=== PATIENT | female | born 1940 | race Caucasian/White ===

== ENCOUNTER 2017-08-31 17:40 | Inpatient (IN) | payer MEDICARE ==
[~2017-08-31] VITALS: Ht 162.6 cm; Wt 60.5 kg
[2017-09-03 15:43] VITALS: BP 153/74
[2017-09-03] MEDS ORDERED: AMBISOME50 MG IV (16:46)
[2017-09-03] MEDS ORDERED: METHYLPHENIDATE 10MG PO (16:47)
[2017-09-03] MEDS ORDERED: GOOD NEIGHBOR500 M2 PO (16:47)
[2017-09-03] MEDS ORDERED: ZOFRAN4 M2 PO (16:47)
[2017-09-03 16:48] LABS: ALBUMIN 2.7 g/dL (3.5-5.0); CALCIUM 8.6 mg/dL (8.4-10.2); TOTAL BILIRUBIN 0.7 mg/dL (0.2-1.3); TOTAL PROTEIN 5.1 g/dL (6.3-8.2)
[2017-09-03] MEDS ORDERED: CHILDREN'S ASPI81 M1 PO (16:48)
[2017-09-03] MEDS ORDERED: LAMICTAL 100MG100 MG PO (16:48)
[2017-09-03] MEDS ORDERED: WELLBUTRIN XL150 M2 PO (16:49)
[2017-09-03] MEDS ORDERED: AMITRIPTYLINE H25 M2 PO (16:49)
[2017-09-03] MEDS ORDERED: URE-NA15 GM PO (16:49)
[2017-09-03] MEDS ORDERED: MIRALAX17 GM PO (16:50)
[2017-09-03] MEDS ORDERED: NEXIUM 40MG40 MG PO (16:50)
[2017-09-03] MEDS ORDERED: MELATONIN1 MG PO (16:50)
[2017-09-03] MEDS ORDERED: PRAVASTATIN SOD40 MG PO (16:50)
[2017-09-03] MEDS ORDERED: TOLTERODINE TART4 MG PO (16:51)
[2017-09-03 18:36] VITALS: BP 141/63
[2017-09-03 19:40] LABS: HEMOGLOBIN 10.4 g/dL (12.5-16.0); MEAN CELL VOLUME 89 fl (78-100); MEAN CORPUSCULAR HEMOGLOBIN 30 pg (27-31); MEAN CORPUSCULAR HGB CONC 34 g/dL (33-37); RED BLOOD COUNT 3.49 M/mm3 (4.10-5.30); WHITE BLOOD COUNT 3.5 K/mm3 (4.8-10.8)
[2017-09-03 19:48] LABS: RED CELL DISTRIBUTION WIDTH 20.3 % (11.5-14.5)
[2017-09-03 19:49] LABS: LYMPHOCYTE 13 % (20-51); NEUTROPHILS 68 % (42-75); PLATELET COUNT 24 K/mm3 (130-400)
[2017-09-03 19:50] LABS: MONOCYTE 15 % (3-10)
[2017-09-04 06:27] VITALS: BP 148/73
[2017-09-04 07:53] LABS: URINE APPEARANCE HAZY; URINE BILIRUBIN NEGATIVE (NEGATIVE); URINE BLOOD TRACE (NEGATIVE); URINE COLOR YELLOW; URINE GLUCOSE NEGATIVE (NEGATIVE); URINE KETONE NEGATIVE (NEGATIVE); URINE LEUKOCYTE ESTERASE 1+ (NEGATIVE); URINE NITRATE NEGATIVE (NEGATIVE); URINE PROTEIN(semi-quant) TRACE mg/dL (NEGATIVE); URINE UROBILINOGEN NORMAL (NORMAL)
[2017-09-04 07:54] LABS: URINE WBC 16-30 /hpf (0-3)
[2017-09-04 12:01] LABS: PH-URINE 5.5 (5.0 - 8.0); URINE APPEARANCE CLOUDY; URINE BILIRUBIN NEGATIVE (NEGATIVE); URINE BLOOD 50 ery/uL (NEGATIVE); URINE COLOR YELLOW; URINE GLUCOSE NEGATIVE (NEGATIVE); URINE KETONE NEGATIVE (NEGATIVE); URINE LEUKOCYTE ESTERASE 2+ (NEGATIVE); URINE NITRATE NEGATIVE (NEGATIVE); URINE PROTEIN(semi-quant) 1+ mg/dL (NEGATIVE); URINE UROBILINOGEN NORMAL (NORMAL)
[2017-09-04 12:02] LABS: URINE WBC >50 /hpf (0-3)
[2017-09-04 18:43] VITALS: BP 149/67
[2017-09-05 06:29] VITALS: BP 154/73
[2017-09-05 18:27] VITALS: BP 157/77
[2017-09-06 06:35] VITALS: BP 144/68
[2017-09-06 06:51] LABS: HEMATOCRIT 34.2 % (37.0-47.0); HEMOGLOBIN 11.7 g/dL (12.5-16.0); MEAN CELL VOLUME 88 fl (78-100); MEAN CORPUSCULAR HEMOGLOBIN 30 pg (27-31); MEAN CORPUSCULAR HGB CONC 34 g/dL (33-37); MEAN PLATELET VOLUME 9.5 fl (7.4-10.4); RED BLOOD COUNT 3.88 M/mm3 (4.10-5.30); WHITE BLOOD COUNT 2.9 K/mm3 (4.8-10.8)
[2017-09-06 06:54] LABS: PLATELET COUNT 19 K/mm3 (130-400); RED CELL DISTRIBUTION WIDTH 21.5 % (11.5-14.5)
[2017-09-06 07:06] LABS: ALBUMIN 3.1 g/dL (3.5-5.0); BUN/CREATININE RATIO 8.5 (6.0-26.0); CALCIUM 9.2 mg/dL (8.4-10.2); TOTAL PROTEIN 5.7 g/dL (6.3-8.2)
[2017-09-06 07:17] LABS: LYMPHOCYTE 5 % (20-51); MONOCYTE 17 % (3-10); NEUTROPHILS 71 % (42-75)
[2017-09-06 07:18] LABS: MICROCYTOSIS 1+; OVALOCYTES 1+
[2017-09-06 18:50] VITALS: BP 141/80
[2017-09-07 06:45] VITALS: BP 154/77
[2017-09-07 18:31] VITALS: BP 165/87
[2017-09-08 06:20] VITALS: BP 132/64
[2017-09-08 08:04] LABS: HEMATOCRIT 34.2 % (37.0-47.0); HEMOGLOBIN 11.7 g/dL (12.5-16.0); MEAN CELL VOLUME 89 fl (78-100); MEAN CORPUSCULAR HEMOGLOBIN 30 pg (27-31); MEAN CORPUSCULAR HGB CONC 34 g/dL (33-37); MEAN PLATELET VOLUME 9.6 fl (7.4-10.4); RED BLOOD COUNT 3.86 M/mm3 (4.10-5.30); WHITE BLOOD COUNT 3.7 K/mm3 (4.8-10.8)
[2017-09-08 08:20] LABS: ALBUMIN 3.1 g/dL (3.5-5.0); BUN/CREATININE RATIO 8.7 (6.0-26.0); CALCIUM 8.7 mg/dL (8.4-10.2); POTASSIUM 3.1 mmol/L (3.6-5.0); TOTAL PROTEIN 5.5 g/dL (6.3-8.2)
[2017-09-08 08:29] LABS: RED CELL DISTRIBUTION WIDTH 21.9 % (11.5-14.5)
[2017-09-08 08:30] LABS: LYMPHOCYTE 4 % (20-51); MICROCYTOSIS 1+; MONOCYTE 15 % (3-10); NEUTROPHILS 75 % (42-75); PLATELET COUNT 22 K/mm3 (130-400)
[2017-09-08 18:25] VITALS: BP 179/79
[2017-09-09 01:20] VITALS: BP 139/83
[2017-09-09 06:37] VITALS: BP 178/72
[2017-09-09 08:23] LABS: BUN/CREATININE RATIO 7.9 (6.0-26.0); CALCIUM 8.6 mg/dL (8.4-10.2)
[2017-09-09 08:34] LABS: POTASSIUM 2.8 mmol/L (3.6-5.0)
[2017-09-09 18:29] VITALS: BP 163/73
[2017-09-10 06:29] VITALS: BP 181/85
[2017-09-10 10:35] VITALS: BP 165/83
[2017-09-10 19:29] VITALS: BP 166/83
[2017-09-11 06:39] VITALS: BP 175/84
[2017-09-11 18:43] VITALS: BP 156/87
[2017-09-12 06:27] VITALS: BP 152/63
[2017-09-12 12:30] LABS: BUN/CREATININE RATIO 8.2 (6.0-26.0); CALCIUM 8.5 mg/dL (8.4-10.2); HEMATOCRIT 32.9 % (37.0-47.0); HEMOGLOBIN 11.3 g/dL (12.5-16.0); MEAN CELL VOLUME 88 fl (78-100); MEAN CORPUSCULAR HEMOGLOBIN 30 pg (27-31); MEAN CORPUSCULAR HGB CONC 34 g/dL (33-37); MEAN PLATELET VOLUME 11.2 fl (7.4-10.4); RED BLOOD COUNT 3.74 M/mm3 (4.10-5.30); WHITE BLOOD COUNT 5.6 K/mm3 (4.8-10.8)
[2017-09-12 12:31] LABS: POTASSIUM 2.7 mmol/L (3.6-5.0)
[2017-09-12 12:32] LABS: BAND 1 % (0-10); LYMPHOCYTE 5 % (20-51); MONOCYTE 15 % (3-10); NEUTROPHILS 72 % (42-75); PLATELET COUNT 34 K/mm3 (130-400); RED CELL DISTRIBUTION WIDTH 21.8 % (11.5-14.5)
[2017-09-12 12:33] LABS: MICROCYTOSIS 1+
[2017-09-12 18:46] VITALS: BP 171/87
[2017-09-13 07:36] LABS: HEMATOCRIT 29.7 % (37.0-47.0); HEMOGLOBIN 10.1 g/dL (12.5-16.0); MEAN CELL VOLUME 89 fl (78-100); MEAN CORPUSCULAR HEMOGLOBIN 30 pg (27-31); MEAN CORPUSCULAR HGB CONC 34 g/dL (33-37); MEAN PLATELET VOLUME 10.1 fl (7.4-10.4); RED BLOOD COUNT 3.35 M/mm3 (4.10-5.30)
[2017-09-13 07:53] LABS: ALBUMIN 2.7 g/dL (3.5-5.0); BUN/CREATININE RATIO 9.6 (6.0-26.0); CALCIUM 8.1 mg/dL (8.4-10.2); TOTAL BILIRUBIN 0.9 mg/dL (0.2-1.3)
[2017-09-13 08:28] LABS: RED CELL DISTRIBUTION WIDTH 21.1 % (11.5-14.5)
[2017-09-13 08:29] LABS: PLATELET COUNT 26 K/mm3 (130-400); POTASSIUM 2.4 mmol/L (3.6-5.0)
[2017-09-13 09:57] LABS: LYMPHOCYTE 6 % (20-51); MICROCYTOSIS 1+; MONOCYTE 15 % (3-10); NEUTROPHILS 76 % (42-75); OVALOCYTES 1+
[2017-09-13 19:00] VITALS: BP 178/92
[2017-09-13 22:23] LABS: BUN/CREATININE RATIO 10.1 (6.0-26.0); CALCIUM 8.6 mg/dL (8.4-10.2); POTASSIUM 3.5 mmol/L (3.6-5.0)
[2017-09-14 06:31] VITALS: BP 158/83
[2017-09-14 08:24] LABS: BUN/CREATININE RATIO 9.9 (6.0-26.0); CALCIUM 8.8 mg/dL (8.4-10.2); POTASSIUM 3.1 mmol/L (3.6-5.0); TOTAL BILIRUBIN 0.9 mg/dL (0.2-1.3); TOTAL PROTEIN 5.3 g/dL (6.3-8.2)
[2017-09-14 18:40] VITALS: BP 177/78
[2017-09-15 06:22] VITALS: BP 169/82
[2017-09-15 13:13] LABS: BUN/CREATININE RATIO 9.9 (6.0-26.0); CALCIUM 8.6 mg/dL (8.4-10.2); POTASSIUM 3.2 mmol/L (3.6-5.0)
[2017-09-15 18:40] VITALS: BP 160/91
[2017-09-16 06:38] VITALS: BP 167/81
[2017-09-16 18:39] VITALS: BP 168/87
[2017-09-17 06:30] VITALS: BP 187/99
[2017-09-17 18:23] VITALS: BP 149/49
[2017-09-18 06:40] VITALS: BP 162/85
[2017-09-18 18:41] VITALS: BP 173/83
[2017-09-19 06:38] VITALS: BP 151/77
[2017-09-19 14:09] VITALS: BP 178/80
[2017-09-19 18:24] VITALS: BP 170/100
[2017-09-20 06:46] LABS: HEMATOCRIT 27.1 % (37.0-47.0); HEMOGLOBIN 9.1 g/dL (12.5-16.0); MEAN CELL VOLUME 89 fl (78-100); MEAN CORPUSCULAR HEMOGLOBIN 30 pg (27-31); MEAN CORPUSCULAR HGB CONC 34 g/dL (33-37); MEAN PLATELET VOLUME 8.5 fl (7.4-10.4); RED BLOOD COUNT 3.04 M/mm3 (4.10-5.30); WHITE BLOOD COUNT 4.9 K/mm3 (4.8-10.8)
[2017-09-20 07:04] VITALS: BP 169/88
[2017-09-20 07:23] LABS: ALBUMIN 2.7 g/dL (3.5-5.0); BUN/CREATININE RATIO 11.7 (6.0-26.0); CALCIUM 8.8 mg/dL (8.4-10.2); TOTAL BILIRUBIN 0.7 mg/dL (0.2-1.3); TOTAL PROTEIN 4.9 g/dL (6.3-8.2)
[2017-09-20 07:31] LABS: PLATELET COUNT 41 K/mm3 (130-400); RED CELL DISTRIBUTION WIDTH 18.9 % (11.5-14.5)
[2017-09-20 07:44] LABS: LYMPHOCYTE 9 % (20-51); MICROCYTOSIS 1+; MONOCYTE 6 % (3-10); NEUTROPHILS 84 % (42-75)
[2017-09-20 18:33] VITALS: BP 169/87
[2017-09-20 20:59] LABS: URINE APPEARANCE CLOUDY; URINE COLOR YELLOW
[2017-09-20 21:00] LABS: URINE BILIRUBIN NEGATIVE (NEGATIVE); URINE BLOOD 50 ery/uL (NEGATIVE); URINE GLUCOSE NEGATIVE (NEGATIVE); URINE KETONE NEGATIVE (NEGATIVE); URINE LEUKOCYTE ESTERASE 2+ (NEGATIVE); URINE NITRATE NEGATIVE (NEGATIVE); URINE PROTEIN(semi-quant) 1+ mg/dL (NEGATIVE); URINE UROBILINOGEN NORMAL (NORMAL); URINE WBC >50 /hpf (0-3)
[2017-09-21 06:25] VITALS: BP 160/78
[2017-09-21 19:13] VITALS: BP 146/80
[2017-09-22 06:32] VITALS: BP 119/59
[2017-09-22 18:20] VITALS: BP 181/98
[2017-09-22 19:37] VITALS: BP 168/92
[2017-09-23 06:16] VITALS: BP 160/78
[2017-09-23 18:29] VITALS: BP 189/100
[2017-09-24 06:15] VITALS: BP 158/83
[2017-09-24 06:42] LABS: HEMATOCRIT 26.8 % (37.0-47.0); HEMOGLOBIN 9.1 g/dL (12.5-16.0); MEAN CELL VOLUME 88 fl (78-100); MEAN CORPUSCULAR HEMOGLOBIN 30 pg (27-31); MEAN CORPUSCULAR HGB CONC 34 g/dL (33-37); MEAN PLATELET VOLUME 9.4 fl (7.4-10.4); RED BLOOD COUNT 3.04 M/mm3 (4.10-5.30); RED CELL DISTRIBUTION WIDTH 17.7 % (11.5-14.5); WHITE BLOOD COUNT 3.7 K/mm3 (4.8-10.8)
[2017-09-24 06:57] LABS: BUN/CREATININE RATIO 10.1 (6.0-26.0); CALCIUM 8.9 mg/dL (8.4-10.2)
[2017-09-24 07:01] LABS: PLATELET COUNT 44 K/mm3 (130-400)
[2017-09-24 07:07] LABS: POTASSIUM 2.9 mmol/L (3.6-5.0)
[2017-09-24 07:16] LABS: LYMPHOCYTE 10 % (20-51); METAMYELOCYTE 1 % (0-0); MICROCYTOSIS 1+; MONOCYTE 11 % (3-10); MYELOCYTE 1 % (0-0); NEUTROPHILS 76 % (42-75); OVALOCYTES 1+
[2017-09-24 18:11] VITALS: BP 148/96
[2017-09-25 06:25] VITALS: BP 163/80
[2017-09-25 18:44] VITALS: BP 171/81
[2017-09-26 07:14] VITALS: BP 166/81
[2017-09-26 12:27] LABS: PH-URINE 7.5 (5.0 - 8.0); URINE APPEARANCE CLEAR; URINE COLOR YELLOW
[2017-09-26 12:28] LABS: URINE BILIRUBIN NEGATIVE (NEGATIVE); URINE BLOOD NEGATIVE (NEGATIVE); URINE GLUCOSE NEGATIVE (NEGATIVE); URINE KETONE NEGATIVE (NEGATIVE); URINE LEUKOCYTE ESTERASE NEGATIVE (NEGATIVE); URINE NITRATE NEGATIVE (NEGATIVE); URINE PROTEIN(semi-quant) NEGATIVE (NEGATIVE); URINE UROBILINOGEN NORMAL (NORMAL)
[2017-09-26 18:53] VITALS: BP 176/90
[2017-09-27 06:28] VITALS: BP 179/91
[2017-09-27 18:53] VITALS: BP 173/97
[2017-09-28 06:25] VITALS: BP 159/79
[2017-09-28 18:28] VITALS: BP 184/97
[2017-09-29 06:27] VITALS: BP 177/89
[2017-09-29 06:34] LABS: HEMATOCRIT 27.2 % (37.0-47.0); HEMOGLOBIN 9.6 g/dL (12.5-16.0); MEAN CELL VOLUME 88 fl (78-100); MEAN CORPUSCULAR HEMOGLOBIN 31 pg (27-31); MEAN CORPUSCULAR HGB CONC 35 g/dL (33-37); MEAN PLATELET VOLUME 9.2 fl (7.4-10.4); PLATELET COUNT 52 K/mm3 (130-400)
[2017-09-29 06:45] LABS: LYMPHOCYTE 5 % (20-51); MONOCYTE 14 % (3-10); NEUTROPHILS 79 % (42-75)
[2017-09-29 06:46] LABS: BUN/CREATININE RATIO 9.2 (6.0-26.0); CALCIUM 9.3 mg/dL (8.4-10.2); POTASSIUM 3.4 mmol/L (3.6-5.0)
[2017-09-29 18:12] VITALS: BP 178/87
[2017-09-30 06:22] VITALS: BP 177/69
[2017-09-30 18:27] VITALS: BP 162/95
[2017-10-01 06:20] VITALS: BP 161/68
[2017-10-01 18:07] VITALS: BP 167/81
[2017-10-02 06:26] VITALS: BP 162/69
[2017-10-02 18:15] VITALS: BP 161/93
[2017-10-03 06:27] VITALS: BP 161/77
[2017-10-03 18:35] VITALS: BP 173/92
[2017-10-04 06:43] VITALS: BP 139/67
[2017-10-04 15:59] LABS: BUN/CREATININE RATIO 7.4 (6.0-26.0); POTASSIUM 3.7 mmol/L (3.6-5.0)
[2017-10-04 18:01] VITALS: BP 178/84
[2017-10-05 06:19] VITALS: BP 162/90
[2017-10-05] MEDS ORDERED: EFFER-K20 MEQ PO (13:18)
[2017-10-05] MEDS ORDERED: MAGNESIUM OXIDE PO (13:19)
[2017-10-05] MEDS ORDERED: MELATONIN PO (13:20)
[2017-10-05] MEDS ORDERED: Patient's Own Medica PO (13:21)
[2017-10-05] MEDS ORDERED: ONMEL200 MG PO (13:22)
[2017-10-05 18:14] VITALS: BP 166/90
[2017-10-05 21:10] LABS: HEMATOCRIT 26.2 % (37.0-47.0); MEAN CELL VOLUME 88 fl (78-100); MEAN CORPUSCULAR HEMOGLOBIN 30 pg (27-31); MEAN CORPUSCULAR HGB CONC 34 g/dL (33-37); MEAN PLATELET VOLUME 9.2 fl (7.4-10.4); PLATELET COUNT 60 K/mm3 (130-400); RED BLOOD COUNT 2.98 M/mm3 (4.10-5.30); RED CELL DISTRIBUTION WIDTH 15.8 % (11.5-14.5); WHITE BLOOD COUNT 4.3 K/mm3 (4.8-10.8)
[2017-10-05 22:35] LABS: ALBUMIN 3.1 g/dL (3.5-5.0); BUN/CREATININE RATIO 9.5 (6.0-26.0); CALCIUM 9.1 mg/dL (8.4-10.2); POTASSIUM 3.4 mmol/L (3.6-5.0); TOTAL BILIRUBIN 0.6 mg/dL (0.2-1.3); TOTAL PROTEIN 5.3 g/dL (6.3-8.2)
[2017-10-05 22:46] LABS: LYMPHOCYTE 7 % (20-51); NEUTROPHILS 73 % (42-75)
[2017-10-05 22:47] LABS: MONOCYTE 13 % (3-10); MYELOCYTE 1 % (0-0)
[2017-10-06 06:22] VITALS: BP 150/64
[2017-10-06 13:01] VITALS: BP 150/64
[2017-10-06 13:15] VITALS: BP 159/89
== END 2017-10-06 13:29 | DRG 947 ==
LOC: MED/SURG 09-01 17:39
PROVIDERS: Family Medicine; Nurse Practitioner; Nurse Practitioner Primary Care; Physician Assistant; ADMIT Physician Assistant
DX: R53.81 Other malaise (principal); B39.0 Acute pulmonary histoplasmosis capsulati; G93.40 Encephalopathy, unspecified; N17.9 Acute kidney failure, unspecified; N39.0 Urinary tract infection, site not specified; Z66 Do not resuscitate; N18.3 Chronic kidney disease, stage 3 (moderate); I12.9 Hypertensive chronic kidney disease with stage 1 through stage 4 chronic kidney disease, or unspecified chronic kidney disease; D69.6 Thrombocytopenia, unspecified; E87.6 Hypokalemia; E83.42 Hypomagnesemia; Z95.0 Presence of cardiac pacemaker; Z85.72 Personal history of non-Hodgkin lymphomas; B96.89 Other specified bacterial agents as the cause of diseases classified elsewhere; E86.0 Dehydration
CPT/HCPCS: A4301; A6206; J0289; J1644; J3480; J7030; J7060